=== PATIENT | male | born 1970 | race Caucasian/White ===

== ENCOUNTER 2017-02-23 06:03 | Emergency (ER) | payer MEDICARE, OTHER ==
[2017-02-23 06:23] VITALS: BMI 30.1
[2017-02-23 06:28] VITALS: BP 141/89; PULSE 83; RESP 16; TEMP 98.5; O2SAT 99
--- NOTE | 2017-02-23 06:44 | ED PDOC ---
Arrival/HPI - General Chief Complaint: Hip Pain Time Seen by Provider: 02/23/17 06:23 Historian: Patient - History of Present Illness Time/Duration: Other (x9 hours) Symptom Course: Unchanged Severity Level: 7 Context: Exertion, Work Associated Symptoms (Text): 02/23/17 06:40 Gibson Regalado is a 46 year old male, with a past medical history of schizophrenia , who presents to the emergency department complaining of left sided low back pain onset since yesterday. Patient reports he was lifting heavy boxes at work , while engaging in heavy lifting he developed left sided pain that radiates down his buttocks. Patient states pain is worst when raising it or with movement. Patient denies any chest pain, cough, fever, nausea, vomit, shortness of breath or abdominal pain. No further medical complaints. PMD: None provided. Past Medical History - Provider Review Nursing Documentation Reviewed: Yes - Endocrine/Metabolic Hx Diabetes Mellitus Type 1: Yes - Psychiatric Hx Schizophrenia: Yes Hx Substance Use: No Other/Comment: stress - Surgical History Other/Comment: rt hand sx x 2, colon resection with colostomy and colostomy reversal, left knee sx - Anesthesia Hx Anesthesia: Yes Hx Anesthesia Reactions: No Family/Social History - Physician Review Nursing Documentation Reviewed: Yes Family/Social History: No Known Family HX Smoking Status: Never Smoked Hx Alcohol Use: No Hx Substance Use: No Allergies/Home Meds Allergies/Adverse Reactions: Allergies No Known Allergies Allergy (Unverified 02/23/17 06:22) Home Medications: Home Meds Medication Instructions Recorded Confirmed Alprazolam [Xanax] 1 mg PO TID 03/17/15 03/17/15 Haldol 03/17/15 03/17/15 PARoxetine [Paxil] 5 mg PO DAILY 03/17/15 03/17/15 Zolpidem Tartrate [Ambien] 10 mg PO QPM 03/17/15 03/17/15 Review of Systems - Patients Enrolled in [employer] [X]: A conversation was conducted with the primary medical doctor. - Review of Systems Constitutional: absent: Fevers Respiratory: absent: SOB, Cough Cardiovascular: absent: Chest Pain Gastrointestinal: absent: Abdominal Pain, Diarrhea, Nausea, Vomiting Musculoskeletal: Back Pain (left sided low back pain radiating to buttocks) Physical Exam Vital Signs Reviewed: Yes Vital Signs Temp Pulse Resp BP Pulse Ox 02/23/17 06:23 98.5 F 83 16 141/89 99 - Systems Exam Head: Present: Atraumatic, Normocephalic Pupils: Present: PERRL Extroacular Muscles: Present: EOMI Conjunctiva: Present: Normal Neck: Present: Normal Range of Motion Respiratory/Chest: No: Respiratory Distress Back: Present: Pain with Leg Raise (straight leg raise test positive at 45 degrees on left). No: CVA Tenderness Neurological: Present: Speech Normal Skin: Present: Warm, Dry, Normal Color Psychiatric: Present: Alert, Oriented x 3 Medical Decision Making ED Course and Treatment: 02/23/17 06:50 Initial Impression: 46 year old male with sciatica. Initial Plan: --Lumbar Spine complete [RAD] --Toradol 30 mg IM --reevaluation -X-ray show no acute fracture or dislocation. Pt discharged on diagnosis of sciatica. Scribe Attestation: Documented by Rufino Stewart, acting as a scribe for Isrrael Menendez MD. Provider Scribe Attestation: All medical record entries made by the Scribe were at my direction and personally dictated by me. I have reviewed the chart and agree that the record accurately reflects my personal performance of the history, physical exam, medical decision making, and the department course for this patient. I have also personally directed, reviewed, and agree with the discharge instructions and disposition. 02/23/17 07:03 - RAD Interpretation Radiology Orders: 02/23/17 06:29 LUMBAR SPINE COMPLETE [RAD] Stat - Medication Orders Current Medication Orders: Discontinued Medications Ketorolac Tromethamine (Toradol) 30 mg IM STAT STA Stop: 02/23/17 06:31 Last Admin: 02/23/17 06:55 Dose: 30 mg MAR Pain Assessment Document 02/23/17 06:55 ENOC (Rec: 02/23/17 06:56 ENOC [id number]) Pain Reassessment Is this a pain reassessment? No Sleep Is patient sleeping during reassessment? No Presence of Pain Presence of Pain Yes Pain Scale Used Pain Scale Used Numeric Location Left, Right or Bilateral Left Upper or Lower Lower Pain Location Body Site Back Hip Description Description Intermittent Intensity of Pain at present 7 Acceptable Level of Pain 2 Pain Behavior Facial Grimacing IM Administration Charges Document 02/23/17 06:55 ENOC (Rec: 02/23/17 06:56 ENOC [id number]) Injection Site MAR Injection Site Right Gluteus Medius Charges for Administration # of IM Administrations 1 Disposition/Present on Arrival - Present on Arrival Any Indicators Present on Arrival: No - Disposition Diagnosis: Sciatica Disposition: HOME/ ROUTINE Disposition Time: 07:00 Condition: STABLE Discharge Instructions (ExitCare): Sciatica (ED) Print Language: GEORGIAN Prescriptions: Cyclobenzaprine [Cyclobenzaprine HCl] 10 mg PO TID PRN #15 tab PRN Reason: back pain Naproxen [Naprosyn] 500 mg PO Q12 #14 tab Forms: [employer] (Tunisian)
--- NOTE | 2017-02-23 08:58 | RAD ---
PROCEDURE: Radiographs of the Lumbar Spine. HISTORY: low back pain COMPARISON: No prior. FINDINGS: BONES: Normal alignment. No listhesis. No fracture. DISC SPACES: Minor disc space narrowing is noted. There is additionally some disc space narrowing and endplate change seen in the lower thoracic spine. OTHER FINDINGS: Sacroiliac joints are unremarkable. Pedicles are intact. Very mild degenerative facet changes seen at L5-S1. IMPRESSION: No evidence of fracture or malalignment. Please see above.
--- NOTE | 2017-02-24 21:49 | ED PDOC ---
HPI: Back Time Seen by Provider: 02/23/17 06:23 Chief Complaint (Nursing): Hip Pain Chief Complaint (Provider): Back pain History Per: Patient History/Exam Limitations: no limitations Onset/Duration Of Symptoms: Days (x1) Current Symptoms Are (Timing): Still Present Additional Complaint(s): Gibson Regalado is a 46 year old male, with a past medical history of schizophrenia , who presents to the emergency department complaining of left sided low back pain onset since yesterday. Patient reports he was lifting heavy boxes at work , while engaging in heavy lifting he developed left sided pain that radiates down his buttocks. Patient states pain is worst when raising it or with movement. Patient denies any chest pain, cough, fever, nausea, vomit, shortness of breath or abdominal pain. No further medical complaints. PMD: None provided. Past Medical History Reviewed: Historical Data, Nursing Documentation, Vital Signs Vital Signs: Last Vital Signs Temp 98.5 F 02/23/17 06:23 Pulse 83 02/23/17 06:23 Resp 16 02/23/17 06:23 BP 141/89 02/23/17 06:23 Pulse Ox 99 02/23/17 06:23 - Medical History PMH: Schizophrenia - Surgical History Other surgeries: rt hand sx x 2, colon resection with colostomy and colostomy reversal, left knee sx - Family History Family History: States: Unknown Family Hx - Social History Current smoker - smoking cessation education provided: No Alcohol: None Drugs: Denies - Immunization History Hx Tetanus Toxoid Vaccination: No Hx Influenza Vaccination: No - Home Medications Home Medications: Ambulatory Orders Medication Instructions Recorded Alprazolam [Xanax] 1 mg PO TID 03/17/15 Cyclobenzaprine HCl [Flexeril] 1 tab PO TID PRN #25 tab 03/17/15 Haldol 03/17/15 Naproxen [Naprosyn] 500 mg PO BID #20 tab 03/17/15 PARoxetine [Paxil] 5 mg PO DAILY 03/17/15 Zolpidem Tartrate [Ambien] 10 mg PO QPM 03/17/15 Cyclobenzaprine [Cyclobenzaprine 10 mg PO TID PRN #15 tab 02/23/17 HCl] Naproxen [Naprosyn] 500 mg PO Q12 #14 tab 02/23/17 - Allergies Allergies/Adverse Reactions: Allergies Allergy/AdvReac Type Severity Reaction Status Date / Time No Known Allergies Allergy Unverified 02/23/17 06:22 Review of Systems ROS Statement: Except As Marked, All Systems Reviewed And Found Negative Constitutional: Negative for: Fever Cardiovascular: Negative for: Chest Pain Respiratory: Negative for: Cough, Shortness of Breath Gastrointestinal: Negative for: Nausea, Vomiting, Abdominal Pain Musculoskeletal: Positive for: Back Pain (left sided low back pain radiating to buttocks) Physical Exam - Reviewed Nursing Documentation Reviewed: Yes Vital Signs Reviewed: Yes - Physical Exam Appears: Positive for: Non-toxic Head Exam: Positive for: ATRAUMATIC, NORMOCEPHALIC Skin: Positive for: Normal Color, Warm, Dry Eye Exam: Positive for: Normal appearance, EOMI, PERRL Neck: Positive for: Normal, Painless ROM Respiratory: Negative for: Respiratory Distress Back: Negative for: Normal Inspection (Pain with leg raise, straight leg raise test positive at 45 degrees on left. ), L CVA Tenderness, R CVA Tenderness Extremity: Positive for: Normal ROM Neurologic/Psych: Positive for: Alert (x3), Oriented, Other (Speech normal) - ECG O2 Sat by Pulse Oximetry: 99 (RA) Pulse Ox Interpretation: Normal Medical Decision Making Medical Decision Making: Initial Impression: 46 year old male with sciatica. Initial Plan: --Lumbar Spine complete [RAD] --Toradol 30 mg IM --reevaluation -X-ray show no acute fracture or dislocation. Pt discharged on diagnosis of sciatica. Scribe Attestation: Documented by Rufino Stewart, acting as a scribe for Isrrael Menendez MD. Provider Scribe Attestation: All medical record entries made by the Scribe were at my direction and personally dictated by me. I have reviewed the chart and agree that the record accurately reflects my personal performance of the history, physical exam, medical decision making, and the department course for this patient. I have also personally directed, reviewed, and agree with the discharge instructions and disposition. 02/23/17 07:03 Disposition - Clinical Impression Clinical Impression: Sciatica - Disposition Disposition Time: 07:00 Condition: STABLE Prescriptions: Cyclobenzaprine [Cyclobenzaprine HCl] 10 mg PO TID PRN #15 tab PRN Reason: back pain Naproxen [Naprosyn] 500 mg PO Q12 #14 tab Instructions: Sciatica (ED) Forms: [employer] (Moldovan) Print Language: MARSHALLESE
== END 2017-02-23 07:02 | disposition home or self-care (01) ==
LOC: H.ER 06:03
DX: M54.32 Sciatica, left side (principal); F20.9 Schizophrenia, unspecified
CPT/HCPCS: 72114; 96372; 99283; J1885

== ENCOUNTER 2017-07-09 21:48 | Emergency (ER) | payer MEDICARE, OTHER ==
[2017-07-09 21:48] VITALS: BMI 30.1
[2017-07-09] MEDS ORDERED: Sodium Chloride 0.9% 1,000 ML IV STA (22:30)
--- NOTE | 2017-07-09 22:39 | ED PDOC ---
HPI: Back Time Seen by Provider: 07/09/17 22:10 Chief Complaint (Nursing): Back Pain Chief Complaint (Provider): Right flank pain since yesterday History Per: Patient History/Exam Limitations: no limitations Onset/Duration Of Symptoms: Days Current Symptoms Are (Timing): Still Present Quality Of Discomfort: Sharp Severity: Severe Pain Scale Rating Of: 9 Previous Symptoms: None Associated Symptoms: None Additional Complaint(s): PT denies similar in the past. Past Medical History Reviewed: Historical Data, Nursing Documentation, Vital Signs Vital Signs: Last Vital Signs Temp 97.7 F 07/09/17 21:55 Pulse 73 07/09/17 21:55 Resp 16 07/09/17 21:55 BP 153/85 H 07/09/17 21:55 Pulse Ox 97 07/09/17 21:55 - Medical History PMH: Schizophrenia - Surgical History Surgical History: No Surg Hx - Family History Family History: States: Unknown Family Hx - Living Arrangements Living Arrangements: With Family - Social History Current smoker - smoking cessation education provided: No - Immunization History Hx Tetanus Toxoid Vaccination: No Hx Influenza Vaccination: No - Home Medications Home Medications: Ambulatory Orders Medication Instructions Recorded Alprazolam [Xanax] 1 mg PO TID 03/17/15 Cyclobenzaprine HCl [Flexeril] 1 tab PO TID PRN #25 tab 03/17/15 Haldol 03/17/15 Naproxen [Naprosyn] 500 mg PO BID #20 tab 03/17/15 PARoxetine [Paxil] 5 mg PO DAILY 03/17/15 Zolpidem Tartrate [Ambien] 10 mg PO QPM 03/17/15 Cyclobenzaprine [Cyclobenzaprine 10 mg PO TID PRN #15 tab 02/23/17 HCl] Naproxen [Naprosyn] 500 mg PO Q12 #14 tab 02/23/17 Ciprofloxacin [Cipro] 500 mg PO BID #10 tab 07/10/17 Ibuprofen [Motrin Tab] 800 mg PO Q6H PRN #20 tab 07/10/17 Tamsulosin [Flomax] 0.4 mg PO DAILY #10 cap 07/10/17 - Allergies Allergies/Adverse Reactions: Allergies Allergy/AdvReac Type Severity Reaction Status Date / Time No Known Allergies Allergy Verified 07/09/17 21:55 Review of Systems ROS Statement: Except As Marked, All Systems Reviewed And Found Negative Constitutional: Negative for: Fever, Chills Gastrointestinal: Positive for: Nausea, Other (Left flank pain) Physical Exam - Reviewed Nursing Documentation Reviewed: Yes Vital Signs Reviewed: Yes - Physical Exam Appears: Positive for: Well, Non-toxic, No Acute Distress Head Exam: Positive for: ATRAUMATIC, NORMAL INSPECTION, NORMOCEPHALIC Skin: Positive for: Normal Color, Warm, DRY Eye Exam: Positive for: Normal appearance ENT: Positive for: Normal ENT Inspection Neck: Positive for: Normal, Painless ROM Cardiovascular/Chest: Positive for: Regular Rate, Rhythm Respiratory: Positive for: CNT, Normal Breath Sounds Gastrointestinal/Abdominal: Positive for: Normal Exam, Bowel Sounds, Soft Back: Positive for: Normal Inspection Extremity: Positive for: Normal ROM Neurologic/Psych: Positive for: Alert, Oriented - Laboratory Results Result Diagrams: 07/09/17 23:04 07/09/17 23:04 - ECG O2 Sat by Pulse Oximetry: 97 Medical Decision Making Medical Decision Making: (+) 0.3 mm kidney stone on CT Disposition - Clinical Impression Clinical Impression: Kidney stone - Patient ED Disposition Is Patient to be Admitted: No Counseled Patient/Family Regarding: Diagnosis, Need For Followup, Rx Given - Disposition Referrals: Ismael Leyva MD [Medical Doctor] - Disposition: Routine/Home Disposition Time: 00:11 Condition: GOOD Prescriptions: Ciprofloxacin [Cipro] 500 mg PO BID #10 tab Ibuprofen [Motrin Tab] 800 mg PO Q6H PRN #20 tab PRN Reason: Pain Tamsulosin [Flomax] 0.4 mg PO DAILY #10 cap Instructions: Kidney Stones in Adults Forms: [employer] (Slovak)
[2017-07-09 23:10] LABS: BASO # 0.1 K/uL (0.0-0.2); BASO % 0.6 % (0.0-2.0); EOS # 0.4 K/uL (0.0-0.7); HEMOGLOBIN 14.7 g/dL (12.0-18.0); LYMPH # 2.6 K/uL (1.0-4.3); LYMPH % 23.6 % (20.0-40.0); MEAN CELL VOLUME 87.6 fl (80.0-94.0); MEAN CORPUSCULAR HEMOGLOBIN 28.8 pg (27.0-31.0); MEAN CORPUSCULAR HGB CONC 32.9 g/dL (33.0-37.0); MEAN PLATELET VOLUME 9.7 fl (7.2-11.7); MONO # 1.2 K/uL (0.0-0.8); MONO % 10.5 % (0.0-10.0); NEUT # 6.7 K/uL (1.8-7.0); NEUT % 61.3 % (50.0-75.0); RBC 5.12 Mil/uL (4.40-5.90); RED CELL DISTRIBUTION WIDTH 14.2 % (11.5-14.5)
[2017-07-09 23:16] LABS: ALB/GLOB RATIO 1.1 (1.0-2.1); ALBUMIN 4.4 g/dL (3.5-5.0); ALT/SGPT 35 U/L (21-72); AST/SGOT 24 U/L (17-59); BLOOD UREA NITROGEN 19 mg/dl (9-20); CALCIUM 9.6 mg/dL (8.4-10.2); GFR AFRICAN-AMERICAN > 60; GFR NON-AFRICAN AMERICAN > 60
[2017-07-09 23:32] LABS: URINE BILIRUBIN NEGATIVE (NEGATIVE); URINE BLOOD NEGATIVE (NEGATIVE); URINE CLARITY CLEAR (Clear); URINE COLOR YELLOW (YELLOW); URINE GLUCOSE (UA) NEG (Normal); URINE LEUKOCYTE ESTERASE NEG Leu/uL (Negative); URINE PROTEIN NEGATIVE (NEGATIVE); URINE UROBILINOGEN 0.2-1.0 mg/dL (0.2-1.0)
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
[2017-07-10 00:19] VITALS: BP 129/78; PULSE 78; RESP 15; TEMP 98.2; O2SAT 99
== END 2017-07-10 00:19 | disposition home or self-care (01) ==
LOC: H.ER 21:48
DX: Z86.59 Personal history of other mental and behavioral disorders (principal); Z93.3 Colostomy status; N20.0 Calculus of kidney
CPT/HCPCS: 74176; 80053; 81003; 85025; 87086; 99283; J1885; J2405; J7040

== ENCOUNTER 2018-08-17 14:41 | Emergency (ER) | payer MEDICARE, OTHER ==
[2018-08-17 14:42] VITALS: BMI 30.1
[2018-08-17 14:48] VITALS: RESP 16
[2018-08-17 16:15] LABS: BASO # 0.1 K/uL (0.0-0.2); BASO % 0.9 % (0.0-2.0); EOS # 0.5 K/uL (0.0-0.7); EOS % 4.9 % (0.0-4.0); HEMOGLOBIN 14.6 g/dL (12.0-18.0); LYMPH # 2.3 K/uL (1.0-4.3); LYMPH % 21.8 % (20.0-40.0); MEAN CELL VOLUME 83.4 fl (80.0-94.0); MEAN CORPUSCULAR HEMOGLOBIN 28.6 pg (27.0-31.0); MEAN CORPUSCULAR HGB CONC 34.3 g/dL (33.0-37.0); MEAN PLATELET VOLUME 9.3 fl (7.2-11.7); MONO # 0.9 K/uL (0.0-0.8); MONO % 8.5 % (0.0-10.0); NEUT # 6.8 K/uL (1.8-7.0); NEUT % 63.9 % (50.0-75.0); NRBC % 0.1 % (0.0-0.0); RBC 5.1 Mil/uL (4.40-5.90); RED CELL DISTRIBUTION WIDTH 15.4 % (11.5-14.5); WHITE BLOOD COUNT 10.6 K/uL (4.8-10.8)
[2018-08-17 16:19] LABS: URINE BILIRUBIN NEGATIVE (NEGATIVE); URINE BLOOD NEGATIVE (NEGATIVE); URINE CLARITY SLIGHTY-CLOUDY (Clear); URINE COLOR YELLOW (YELLOW); URINE GLUCOSE (UA) NEG (NEGATIVE); URINE LEUKOCYTE ESTERASE NEG Leu/uL (Negative); URINE PROTEIN NEGATIVE (NEGATIVE); URINE UROBILINOGEN 0.2-1.0 mg/dL (0.2-1.0)
[2018-08-17 16:21] LABS: ALBUMIN 4.2 g/dL (3.5-5.0); ALT/SGPT 34 U/L (21-72); AST/SGOT 41 U/L (17-59); BLOOD UREA NITROGEN 15 mg/dl (9-20); CALCIUM 9.4 mg/dL (8.4-10.2); GFR NON-AFRICAN AMERICAN > 60; LIPASE 81 U/L (23-300)
[2018-08-17] MEDS ORDERED: Iohexol 300 100 ML IJ ONE (16:59)
[2018-08-17] MEDS ORDERED: Sodium Chloride 0.9% 50 ML IV ONE (16:59)
--- NOTE | 2018-08-17 17:08 | ED PDOC ---
HPI: Abdomen Time Seen by Provider: 08/17/18 15:30 Chief Complaint (Nursing): Abdominal Pain Chief Complaint (Provider): Abdominal Pain History Per: Patient History/Exam Limitations: no limitations Onset/Duration Of Symptoms: Days (x3) Current Symptoms Are (Timing): Still Present Additional Complaint(s): 47 year old male presents to the ED for evaluation of worsening abdominal pain for the past three days which initially began as generalized but is now localized to LLQ. Patient states that every time he eats or drinks, he has been having immediate watery diarrhea, and feels very tired now. Otherwise, denies vomiting and other symptoms. PMD: [place] Past Medical History Reviewed: Historical Data, Nursing Documentation, Vital Signs Vital Signs: Last Vital Signs Temp 98.4 F 08/17/18 14:45 Pulse 85 08/17/18 14:45 Resp 16 08/17/18 14:45 BP 146/95 H 08/17/18 14:45 Pulse Ox 99 08/17/18 14:45 - Medical History PMH: Schizophrenia - Surgical History Other surgeries: rt hand sx x 2, colon resection with colostomy and colostomy reversal, left knee sx - Family History Family History: States: Unknown Family Hx - Social History Current smoker - smoking cessation education provided: No - Immunization History Hx Tetanus Toxoid Vaccination: No Hx Influenza Vaccination: No - Home Medications Home Medications: Ambulatory Orders Medication Instructions Recorded Alprazolam [Xanax] 1 mg PO TID 03/17/15 Cyclobenzaprine HCl [Flexeril] 1 tab PO TID PRN #25 tab 03/17/15 Haldol 03/17/15 Naproxen [Naprosyn] 500 mg PO BID #20 tab 03/17/15 PARoxetine [Paxil] 5 mg PO DAILY 03/17/15 Zolpidem Tartrate [Ambien] 10 mg PO QPM 03/17/15 Cyclobenzaprine [Cyclobenzaprine 10 mg PO TID PRN #15 tab 02/23/17 HCl] Naproxen [Naprosyn] 500 mg PO Q12 #14 tab 02/23/17 Ciprofloxacin [Cipro] 500 mg PO BID #10 tab 07/10/17 Ibuprofen [Motrin Tab] 800 mg PO Q6H PRN #20 tab 07/10/17 Tamsulosin [Flomax] 0.4 mg PO DAILY #10 cap 07/10/17 - Allergies Allergies/Adverse Reactions: Allergies Allergy/AdvReac Type Severity Reaction Status Date / Time No Known Allergies Allergy Verified 07/09/17 21:55 Review of Systems ROS Statement: Except As Marked, All Systems Reviewed And Found Negative Constitutional: Positive for: Other (feels tired) Gastrointestinal: Positive for: Abdominal Pain (generalized, now just LLQ), Diarrhea (watery). Negative for: Vomiting Physical Exam - Reviewed Nursing Documentation Reviewed: Yes Vital Signs Reviewed: Yes - Physical Exam Appears: Positive for: No Acute Distress Head Exam: Positive for: ATRAUMATIC, NORMAL INSPECTION, NORMOCEPHALIC Skin: Positive for: Normal Color, Warm, Dry Eye Exam: Positive for: Normal appearance ENT: Positive for: Normal ENT Inspection Neck: Positive for: Normal, Painless ROM, Supple Cardiovascular/Chest: Positive for: Regular Rate, Rhythm Respiratory: Positive for: Normal Breath Sounds. Negative for: Respiratory Distress Gastrointestinal/Abdominal: Positive for: Soft, Tenderness (LLQ). Negative for: Guarding, Rebound Back: Positive for: Normal Inspection Extremity: Positive for: Normal ROM (all extremities), Other (congenital contractures of bilateral hands) Neurological/Psych: Positive for: Awake, Alert, Oriented (x3). Negative for: Motor/Sensory Deficits - Laboratory Results Result Diagrams: 08/17/18 16:00 08/17/18 16:00 Lab Results: Total Bilirubin 0.5 mg/dl (0.2-1.3) 08/17/18 16:00 AST 41 U/L (17-59) 08/17/18 16:00 ALT 34 U/L (21-72) 08/17/18 16:00 Alkaline Phosphatase 99 U/L (38-126) 08/17/18 16:00 Total Protein 8.3 G/DL (6.3-8.2) H 08/17/18 16:00 Albumin 4.2 g/dL (3.5-5.0) 08/17/18 16:00 Globulin 4.1 gm/dL (2.2-3.9) H 08/17/18 16:00 Albumin/Globulin Ratio 1.0 (1.0-2.1) 08/17/18 16:00 Lipase 81 U/L (23-300) 08/17/18 16:00 Urine Color Yellow (YELLOW) 08/17/18 16:00 Urine Clarity Slighty-cloudy (Clear) 08/17/18 16:00 Urine pH 6.0 (5.0-8.0) 08/17/18 16:00 Ur Specific [place] 1.020 (1.003-1.030) 08/17/18 16:00 Urine Protein Negative mg/dL (NEGATIVE) 08/17/18 16:00 Urine Glucose (UA) Neg mg/dL (NEGATIVE) 08/17/18 16:00 Urine Ketones Negative mg/dL (NEGATIVE) 08/17/18 16:00 Urine Blood Negative (NEGATIVE) 08/17/18 16:00 Urine Nitrate Negative (NEGATIVE) 08/17/18 16:00 Urine Bilirubin Negative (NEGATIVE) 08/17/18 16:00 Urine Urobilinogen 0.2-1.0 mg/dL (0.2-1.0) 08/17/18 16:00 Ur Leukocyte Esterase Neg [place]/uL (Negative) 08/17/18 16:00 Urine RBC (Auto) 2 /hpf (0-3) 08/17/18 16:00 Urine Microscopic WBC 3 /hpf (0-5) 08/17/18 16:00 - ECG O2 Sat by Pulse Oximetry: 99 (RA) Pulse Ox Interpretation: Normal Medical Decision Making Medical Decision Making: Time: 1545 Initial Impression: workup for LLQ pain and diarrhea, possible dehydration Initial Plan: --Type and screen --CT abd/pelvis IV contrast --CMP --Lipase --CBC with differential --Toradol 30mg IVP --Urinalysis --IV fluids --Reevaluation 1756 CT FINDINGS: LOWER THORAX: Small hiatal hernia. LIVER: Diminished attenuation throughout the liver suggests hepatic steatosis without intrahepatic biliary dilatation or mass appreciable. GALLBLADDER AND BILE DUCTS: Gallbladder is distended but otherwise unremarkable appearing. No significant CBD dilatation. PANCREAS: Unremarkable. No gross lesion or ductal dilatation. SPLEEN: Unremarkable. ADRENALS: Unremarkable. No mass. KIDNEYS AND URETERS: Multiple punctate nonobstructing intrarenal calculi are again seen at the bilateral kidneys with prior hydronephrosis now resolved with obstructing proximal right ureteral calculus now not visualized including the urinary bladder. No renal mass or cyst appreciable. Tiny lucency lower poles both kidneys too small to characterize VASCULATURE: Nonaneurysmal abdominal aortic calcific atherosclerotic changes are identified. BOWEL: Left colonic diverticulosis is again appreciated with mild pericolic reactive changes extending into the left pericolic gutter suspicious for mild segmental diverticulitis without abscess or site of bowel perforation. Anastomotic suture line again seen at the proximal sigmoid segment which is unremarkable appearing as imaged. Retained fecal material as obscures evaluation of large bowel as well as lack of oral contrast. Stomach is collapsed and is poorly evaluated small-bowel loops unremarkable. Occasional transverse and right colonic diverticular are appreciated nonacute. APPENDIX: No CT evidence of appendicitis. PERITONEUM: Unremarkable. No free fluid. No free air. LYMPH NODES: Unremarkable. No enlarged lymph nodes. BLADDER: Unremarkable. REPRODUCTIVE: Unremarkable. BONES: No acute fracture. OTHER FINDINGS: None. IMPRESSION: Findings most compatible with limited left colonic diverticulitis without abscess or CT sign of perforation. Prior proximal sigmoid segmental resection anastomotic region unremarkable though retained fecal material obscures lumen of this location as well as other segments of large bowel. Hepatic steatosis reiterated. Resolution of prior right hydronephrosis with punctate intrarenal calculi scattered both kidneys once again. Other lesser findings as discussed above. [address] shows diverticulitis. 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 Scribe Attestation: Documented by Herlinda Arana, acting as a scribe for Louann Allen MD. Provider Scribe Attestation: All medical record entries made by the Scribe were at my direction and personally dictated by me. I have reviewed the chart and agree that the record accurately reflects my personal performance of the history, physical exam, medical decision making, and the department course for this patient. I have also personally directed, reviewed, and agree with the discharge instructions and disposition. Disposition - Clinical Impression Clinical Impression: Diverticulitis, Diarrhea - Disposition Referrals: Sony Smith MD, PhD [Staff Provider] - Disposition Time: 19:00 Condition: STABLE Additional Instructions: Take Motrin as needed for pain. Call to schedule an appointment for Gastroenterology doctor. Return to the emergency department if symptoms worsen. Increase rest and drink plenty of water while symptoms last. Instructions: Diarrhea and Traveler's Diarrhea, Adult (DC), Diverticulitis (DC) Forms: [employer] (Uzbek), [facility] ED School/Work Excuse Print Language: MONGOLIAN
--- NOTE | 2018-08-17 18:01 | CT ---
Date of service: 08/17/2018 PROCEDURE: CT Abdomen and Pelvis with contrast HISTORY: LLQ pain/diarrhea COMPARISON: None. TECHNIQUE: Following the intravenous administration of iodinated contrast material, a CT examination of the abdomen and pelvis was performed from the domes of the diaphragms to the symphysis pubis with reformatted datasets provided in axial, sagittal and coronal planes. Oral contrast was not administered as per referring physician request. Contrast dose: Omnipaque 300, 95 cc Radiation dose: Total exam DLP = 520.6 mGy-cm. This CT exam was performed using one or more of the following dose reduction techniques: Automated exposure control, adjustment of the mA and/or kV according to patient size, and/or use of iterative reconstruction technique. FINDINGS: LOWER THORAX: Small hiatal hernia. LIVER: Diminished attenuation throughout the liver suggests hepatic steatosis without intrahepatic biliary dilatation or mass appreciable. GALLBLADDER AND BILE DUCTS: Gallbladder is distended but otherwise unremarkable appearing. No significant CBD dilatation. PANCREAS: Unremarkable. No gross lesion or ductal dilatation. SPLEEN: Unremarkable. ADRENALS: Unremarkable. No mass. KIDNEYS AND URETERS: Multiple punctate nonobstructing intrarenal calculi are again seen at the bilateral kidneys with prior hydronephrosis now resolved with obstructing proximal right ureteral calculus now not visualized including the urinary bladder. No renal mass or cyst appreciable. Tiny lucency lower poles both kidneys too small to characterize VASCULATURE: Nonaneurysmal abdominal aortic calcific atherosclerotic changes are identified. BOWEL: Left colonic diverticulosis is again appreciated with mild pericolic reactive changes extending into the left pericolic gutter suspicious for mild segmental diverticulitis without abscess or site of bowel perforation. Anastomotic suture line again seen at the proximal sigmoid segment which is unremarkable appearing as imaged. Retained fecal material as obscures evaluation of large bowel as well as lack of oral contrast. Stomach is collapsed and is poorly evaluated small-bowel loops unremarkable. Occasional transverse and right colonic diverticular are appreciated nonacute. APPENDIX: No CT evidence of appendicitis. PERITONEUM: Unremarkable. No free fluid. No free air. LYMPH NODES: Unremarkable. No enlarged lymph nodes. BLADDER: Unremarkable. REPRODUCTIVE: Unremarkable. BONES: No acute fracture. OTHER FINDINGS: None. IMPRESSION: Findings most compatible with limited left colonic diverticulitis without abscess or CT sign of perforation. Prior proximal sigmoid segmental resection anastomotic region unremarkable though retained fecal material obscures lumen of this location as well as other segments of large bowel. Hepatic steatosis reiterated. Resolution of prior right hydronephrosis with punctate intrarenal calculi scattered both kidneys once again. Other lesser findings as discussed above.
[2018-08-17 19:11] VITALS: BP 136/70; PULSE 78; TEMP 98.5
[2018-08-17 19:12] VITALS: O2SAT 100
== END 2018-08-17 19:10 | disposition home or self-care (01) ==
LOC: H.ER 14:41
DX: K57.92 Diverticulitis of intestine, part unspecified, without perforation or abscess without bleeding (principal); R19.7 Diarrhea, unspecified; Z86.59 Personal history of other mental and behavioral disorders; Z87.442 Personal history of urinary calculi
CPT/HCPCS: 74177; 80053; 81003; 83690; 85025; 86850; 86900; 96374; 99282; J1885; Q9967